=== PATIENT | female | born 1985 | race Caucasian/White ===

== ENCOUNTER 2020-01-20 21:57 | Emergency (ER) | payer OTHER ==
[2020-01-20 22:01] VITALS: RESP 18; TEMP 97.9
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
[2020-01-20] MEDS ORDERED: ACET/COD 300 MG/30 MG STARTER PACK 6 TAB BTL PO STA (22:47)
[2020-01-20 23:21] VITALS: BP 121/79; PULSE 105
== END 2020-01-20 23:27 | disposition home or self-care (01) ==
LOC: EC 21:57
DX: R20.2 Paresthesia of skin (principal); M25.522 Pain in left elbow; M79.642 Pain in left hand; Z78.9 Other specified health status; F17.200 Nicotine dependence, unspecified, uncomplicated
CPT/HCPCS: 99283